=== PATIENT | male | born 1955 | race Caucasian/White ===

== ENCOUNTER 2017-02-20 13:10 | Day surgery (SDC) | payer BC ==
[2017-02-15 15:28] LABS: HEMATOCRIT 42.5 % (40.0-51.0); HEMOGLOBIN 13.9 g/dL (13.6-17.8)
[2017-02-15 16:04] LABS: ALBUMIN 3.8 G/DL (3.5-5.0); BUN (BLOOD UREA NITROGEN) 14 MG/DL (6-23); CALCIUM, SERUM 9.1 MG/DL (8.5-10.4); CHLORIDE, SERUM 105 MMOL/L (96-112); CO2 (CARBON DIOXIDE) 30 MMOL/L (24-34); CREATININE 0.97 MG/DL (0.70-1.30); DIRECT BILIRUBIN 0.1 MG/DL (0.0-0.4); GFR AFRICAN AMERICAN 97 ML/MIN (>=60); GFR NON AFRICAN AMERICAN 83 ML/MIN (>=60); GLUCOSE, SERUM 84 MG/DL (60-99); INDIRECT BILIRUBIN(NOT ORDER) 0.3 MG/DL (0.1-0.9); POTASSIUM, SERUM 4.3 MMOL/L (3.5-5.3); SGOT(AST) 30 U/L (5-40); SGPT(ALT) 40 U/L (5-65); SODIUM, SERUM 140 MMOL/L (135-148); TOTAL BILIRUBIN 0.4 MG/DL (0-1.2); TOTAL PROTEIN 7.9 G/DL (6.0-8.5)
[2017-02-15 16:08] LABS: ALKALINE PHOSPHATASE 96 U/L (45-117)
--- NOTE | ~2017-02-20 | OP ---
Record Of Operation [facility] [address] [place]. [address] NAME: CARLTON ODONNELL : 53 STATUS : REG [facility]#: [id number] AGE: 61 ADM/REG DATE : 02/20/17 MR#: [id number] REPORT SERV DATE: 02/20/17 DICTATED BY: RINA VEGA DATE: 02/20/17 REPORT STATUS : Draft TRANSCRIBED BY: MODL DATE: 02/20/17 DATE OF PROCEDURE: 02/20/2017 PREOPERATIVE DIAGNOSIS: Neck adenopathy. POSTOPERATIVE DIAGNOSIS: Neck adenopathy. PROCEDURE: Left neck cervical lymph node biopsy, deep, level 2B. INDICATIONS: Carlton Odonnell is a 61-year-old gentleman, whom I saw about a year ago for a left parotid lymph node. This was aspirated and the FNA was negative at that time and in the last couple of months, he has had progressively bulky cervical lymphadenopathy. A CT scan also shows the mediastinum to be full of neck nodes. I counseled him about the risks, benefits, and alternatives of this procedure. The risks include, but are not limited to pain, bleeding, infection, and scarring. I also told him that today's procedure is diagnostic and not therapeutic and if a diagnosis of lymphoma is returned, he will need to have chemotherapy. I also informed his of the possible need to stay overnight, if he is having difficulty postoperatively. They voiced an understanding for all of those risks and he signed a consent form. PROCEDURE IN DETAIL: Mr. Odonnell was brought to the operating room and positioned on the table in a supine manner. General endotracheal anesthesia was induced. He was somewhat difficult to intubate. The patient was prepped and draped in the usual fashion. An incision was made within relaxed skin tension lines overlying the anterior border of the left sternocleidomastoid muscle. This was carried down through subcutaneous tissue. Hemostasis was obtained with unipolar and bipolar electrocautery. We came over the anterior border of the sternocleidomastoid muscle and identified the mass in question, which was between the sternocleidomastoid muscle and the left submandibular gland. A combination of blunt and sharp dissection sufficed to free up this node from surrounding tissue. Multiple other nodes are seen as well. Once the specimen had been delivered, this was given to Dr. Bennett as a fresh specimen and he will proceed with the lymphoma workup. The surgical cavity was thoroughly irrigated with copious amounts of saline. A bit of Surgiflo was placed into the cavity as well and we left that in place for 3 minutes and then washed most of that out without identifying any further bleeding. A small piece of Surgicel was placed into the apex of the wound at an area that was oozing just slightly. This oozing had stopped by the end of the procedure. A 4-0 Vicryl undyed was utilized to reapproximate the platysma in an interrupted fashion. We used the same stitch to sew the subcutaneous layer together and once that was finished, we placed a 5-0 Prolene on the skin edge and 0.5 inch Steri-Strips as well. A dressing sponge was placed over the top of that. The patient was returned to anesthesia control and he was extubated in the operating room and moved to the recovery room in good condition. FINDINGS: 1. Estimated blood loss 10 mL. 2. Total fluids given 1000 mL of Ringer's lactate. 3. Multiple left-sided lymph nodes, consistent with lymphoma. Record Of Operation [facility] [address] [place]. [address] NAME: CARLTON ODONNELL : 53 STATUS : REG [facility]#: [id number] AGE: 61 ADM/REG DATE : 02/20/17 MR#: [id number] REPORT SERV DATE: 02/20/17 DICTATED BY: RINA VEGA DATE: 02/20/17 REPORT STATUS : Draft TRANSCRIBED BY: LESLIE DATE: 02/20/17 DMITRY/LESLIE Rina Vega M.D. / [id number] CC: Ben Bowman DO
[~2017-02-20 13:10] MED LIST: ASAB PO; ATEN25 PO; CODEINE SULFATE PO; IMITREX100 MG PO; PRAVACHOL40 MG PO; TESS PO
[2017-02-20 17:15] LABS: BASOPHILS 0.2 %; BASOPHILS ABSOLUTE 0.02 10/3/uL (0.0-0.16); EOSINOPHILS 0.1 %; EOSINOPHILS ABSOLUTE 0.01 10/3/uL (0.0-0.53); HEMOGLOBIN 14.4 g/dL (13.6-17.8); IMMATURE GRANULOCYTES 0.3 %; IMMATURE GRANULOCYTES ABSOLUTE 0.04 10/3/uL (0.0-0.11); LYMPHOCYTES 12.2 %; LYMPHOCYTES ABSOLUTE 1.43 10/3/uL (0.67-4.30); MEAN CORPUSCULAR HEMOGLOB 29.1 pg (26.0-34.0); MEAN CORPUSCULAR VOLUME 88.9 fL (80-100); MEAN PLATELET VOLUME 8.6 fL (9.2-13.0); MONOCYTES 3.8 %; MONOCYTES ABSOLUTE 0.45 10/3/uL (0.21-1.20); NEUTROPHILS 83.4 %; NEUTROPHILS ABSOLUTE 9.79 10/3/uL (2.02-8.40); RBC DISTRIBUTION WIDTH 12.9 % (12.0-16.0); RED CELL COUNT 4.95 10/6/uL (4.7-6.1); RETICULOCYTE COUNT 1.4 % (0.5-2.5); RETICULOCYTE COUNT ABSOLUTE 68.8 10/3/uL (20.2-119.8)
[2017-02-20 17:16] LABS: MANUAL DIFF NO %; MEAN CORPUS HGB CONC 32.7 g/dL (32.0-36.0); PLATELET COUNT 314 10/3/uL (150-400); WHITE BLOOD CELLS 11.7 10/3/uL (4.5-10.5)
[2017-05-07] MEDS ORDERED: P20 PO (11:45)
[2017-05-07] MEDS ORDERED: LIOR10 PO (11:46)
[2017-05-07] MEDS ORDERED: ZOFRANODT8 PO (11:46)
[2017-05-07] MEDS ORDERED: COMP10B PO (11:48)
[2017-05-07] MEDS ORDERED: IMITREX100 MG PO (11:49)
[2017-05-07] MEDS ORDERED: CHEMOTHERAPY IV (11:49)
[2017-05-07] MEDS ORDERED: ASAB PO (11:50)
[2017-05-07] MEDS ORDERED: MIRALAX POWDER1 PKT PO (11:50)
[2017-05-07] MEDS ORDERED: DSS PO (11:50)
[2017-05-07] MEDS ORDERED: SENTAB PO (11:50)
[2017-05-08] MEDS ORDERED: ELIQUIS 5 MG TAB5 MG PO (16:22)
[2017-05-08] MEDS ORDERED: FLECAINIDE100 MG PO (16:23)
== END 2017-02-20 19:43 | disposition home or self-care (01) ==
LOC: SDC 13:10
PROVIDERS: Otolaryngology; Pathology Anatomic Pathology & Clinical Pathology
PROC: 07B20ZX Excision of Left Neck Lymphatic, Open Approach, Diagnostic (ICD-10-PCS; principal; 2017-02-20 14:30)
DX: R59.1 Generalized enlarged lymph nodes (principal); R04.2 Hemoptysis; I10 Essential (primary) hypertension; E78.00 Pure hypercholesterolemia, unspecified; I48.91 Unspecified atrial fibrillation; Z79.899 Other long term (current) drug therapy; Z88.8 Allergy status to other drugs, medicaments and biological substances; Z85.46 Personal history of malignant neoplasm of prostate; Z98.890 Other specified postprocedural states; Z87.891 Personal history of nicotine dependence
CPT/HCPCS: 80048; 80076; 85014; 85018; 85025; 85045; 88305; 88311; 88313; 88341; 88342; 88360; 88367; 93005; J0690; J2250; J2370; J2405; J2710; J3010

== ENCOUNTER 2017-02-28 15:23 | Inpatient (IN) | payer BC ==
--- NOTE | ~2017-02-28 | DS ---
Discharge Summary [facility] [address] [place]. 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 3. Hypertension. 4. Heart disease. 5. Former smoker. CONSULTATIONS: Paolo Rogers MD PROCEDURES PERFORMED: None. MEDICATIONS: Excedrin Extra-Strength two tablets daily as needed, Tenormin 25 mg at bedtime, Tessalon 100 mg three times a day as needed, Pravachol 40 mg every 48 hours, and Deltasone 100 mg daily. CONDITION AT DISCHARGE: Stable. DISPOSITION: The patient was discharged home on a regular diet with activities as instructed. He would follow up with me as instructed. HOSPITAL COURSE: This is a 61-year-old man who has mediastinal B-cell lymphoma. He had initially presented in February of 2016 with left neck enlarged adenopathy. Fine-needle aspiration showed only benign reactive lymph nodes. However, adenopathy continued to increase and recently he had worsening shortness of breath and occasional hemoptysis. Recent imaging with a PET-CT showed a 7.3 cm of bulky mediastinal mass as well as right supraclavicular and left neck up to level 2 adenopathy consistent with Hodgkin's lymphoma. Additionally, a 0.7 cm right middle lobe nodule was identified, but not thought to be involved. Excision of the left neck on 02/20/2017 confirmed diffuse large B-cell lymphoma, non-germinal center type. He was admitted to the hospital at this time for further evaluation and treatment. Upon admission, it was felt that the patient should be placed on prednisone and we began R- CHOP the following day. A Rituxan test dose was going to be performed. 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 Breathing treatments were going to be provided in addition to the chemotherapy. The following day, the patient was seen by Dr. Paolo Rogers regarding the bulky B-cell lymphoma. Prednisone had been started. The patient said he was having less hemoptysis. He had stable [id number] shortness of breath and especially increased cough at night. He denied any arm pain or swelling. 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 The typical management scheme of chemotherapy with adjuvant radiotherapy was discussed. It was felt that radiotherapy could be used in an emergent situation if the patient developed significant and worsening stridor or symptoms of superior vena cava syndrome. He denied any pain or swelling at this time. He had already been started on prednisone, which had decreased his hemoptysis. Plans were made to begin systemic therapy later in the day. A PICC line had been inserted. He had been changed to IV steroids. On 03/02/2017, he said he was feeling okay. His SVC syndrome Discharge Summary [address] [address] NAME: ALOK AGUILA : 53 STATUS : DIS IN PAT#: [id number] AGE: 61 ADM/REG DATE : 02/28/17 MR#: [id number] REPORT SERV DATE: 03/14/17 DICTATED BY: REGAN MEDELLIN DATE: 03/14/17 REPORT STATUS : Draft TRANSCRIBED BY: LESLIE DATE: 03/14/17 was improving. Chemotherapy treatment continued. Discharge planning was performed. On 03/03/2017, he was feeling okay. He had decreased swelling in his neck. He had no edema. Discharge instructions were given. Due to his improved and stable condition, he was discharged home with the above-stated instructions. Information collected by: Sumaya Dutta I submit the above information as my discharge summary. TG/LESLIE Regan Medellin M.D. / [id number] CC: Ben Bales IV, DO Marcus Wagner, MD
--- NOTE | ~2017-02-28 | CONSULT ---
Radiation Oncology Consult [address] [address] NAME: ALOK AGUILA : 53 STATUS : ADM IN PAT#: [id number] AGE: 61 ADM/REG DATE : 02/28/17 MR#: [id number] REPORT SERV DATE: 03/01/17 DICTATED BY: PAOLO ROGERS DATE: 03/01/17 REPORT STATUS : Draft TRANSCRIBED BY: MODL DATE: 03/01/17 RADIATION ONCOLOGY CONSULTATION REASON FOR CONSULTATION: Bulky B-cell lymphoma. HISTORY OF PRESENT ILLNESS: Mr. Aguila is a pleasant 61-year-old white male who initially presented in 02/2016 with left neck enlarged adenopathy. FNA on 03/16/2016 showed only benign reactive lymph node. However, adenopathy continued to increase and more recently, worsening shortness of breath, cough, and occasional hemoptysis. Recent imaging with PET-CT shows 7.3 cm bulky mediastinal mass as well as right supraclavicular and left neck up to level 2 adenopathy consistent with Hodgkin lymphoma. Additionally, a 0.7 cm right middle lobe nodule was identified, but not thought to be involved. Excision of left neck on 02/20/2017 confirms diffuse large B-cell lymphoma, non-germinal center type. The patient was admitted to the hospital yesterday by Dr. Andrade. After starting prednisone yesterday, he states he is having less hemoptysis, otherwise, stable [id number]-[id number] shortness of breath and especially increased cough at nighttime. He denies arm pain or swelling. He has had some voice oil changer the past week which is not present today. REVIEW OF SYSTEMS: A comprehensive review of systems was obtained. Pertinent positives and negatives are listed above. PAST MEDICAL HISTORY: Heart disease, hypertension, prostatectomy, cholecystectomy, and diffuse large B-cell lymphoma. SOCIAL HISTORY: He smoked cigars as well as smoked half pack per day. He drinks alcohol socially. Denies illicit drug use. FAMILY HISTORY: Noncontributory. PHYSICAL EXAMINATION: VITAL SIGNS: Weight 218 pounds. GENERAL: Well-developed, well-nourished white male, sitting in hospital lounge chair, in no acute distress. Alert and oriented x4. Performance status 1. PULMONARY: Breathing normally without supplemental oxygen. Able to talk without pause. Clear to auscultation bilaterally. Good respiratory effort. CARDIOVASCULAR: Regular rate and rhythm. No peripheral edema. NECK: Bulky adenopathy was noted along the left neck with recent excision bandage in the low neck. EYES: Sclerae anicteric. Pupils equal, round, and reactive to light. ABDOMEN: Soft, nontender, nondistended. Positive bowel sounds. EXTREMITIES: No clubbing, cyanosis, or edema. NEUROLOGIC: Nonfocal. SKIN: No rashes or bruising. Radiation Oncology Consult [address] [address] NAME: ALOK AGUILA : 53 STATUS : ADM IN PAT#: [id number] AGE: 61 ADM/REG DATE : 02/28/17 MR#: [id number] REPORT SERV DATE: 03/01/17 DICTATED BY: PAOLO ROGERS DATE: 03/01/17 REPORT STATUS : Draft TRANSCRIBED BY: LESLIE DATE: 03/01/17 IMAGING: I reviewed PET-CT and agree with the above findings. ASSESSMENT AND PLAN: Diffuse large B-cell lymphoma with bulky mediastinal adenopathy: We discussed the typical management scheme of chemotherapy with adjuvant radiotherapy. Radiotherapy could be used in an emergent situation if the patient developed significant and worsening stridor or symptoms of superior vena cava syndrome (he denies arm pain or swelling at this time). He has already started on prednisone which has decreased his hemoptysis with plans to start systemic therapy later today. Therefore, I will hold radiotherapy for now and plan otherwise to see him for consolidative therapy after the chemotherapy is completed in several months. It is a pleasure to participate in his care. CATHY/LESLIE Paolo Rogers MD / [id number] CC: Ben Bales IV, DO Douglas A. Liening, M.D.
[2017-02-28 18:20] LABS: BASOPHILS 0.2 %; BASOPHILS ABSOLUTE 0.03 10/3/uL (0.0-0.16); EOSINOPHILS 0.2 %; EOSINOPHILS ABSOLUTE 0.03 10/3/uL (0.0-0.53); HEMATOCRIT 42.9 % (40.0-51.0); HEMOGLOBIN 14.1 g/dL (13.6-17.8); IMMATURE GRANULOCYTES 0.5 %; IMMATURE GRANULOCYTES ABSOLUTE 0.06 10/3/uL (0.0-0.11); LYMPHOCYTES 20.8 %; MEAN CORPUS HGB CONC 32.9 g/dL (32.0-36.0); MEAN CORPUSCULAR HEMOGLOB 28.8 pg (26.0-34.0); MEAN CORPUSCULAR VOLUME 87.6 fL (80-100); MEAN PLATELET VOLUME 8.9 fL (9.2-13.0); MONOCYTES 8.7 %; MONOCYTES ABSOLUTE 1.13 10/3/uL (0.21-1.20); NEUTROPHILS 69.6 %; NEUTROPHILS ABSOLUTE 9.06 10/3/uL (2.02-8.40); PLATELET COUNT 313 10/3/uL (150-400); RBC DISTRIBUTION WIDTH 13.3 % (12.0-16.0)
[2017-02-28 18:21] LABS: MANUAL DIFF NO %
[2017-02-28 18:36] LABS: A/G RATIO 0.7 (0.7-1.9); ALBUMIN 3.4 G/DL (3.5-5.0); ALKALINE PHOSPHATASE 81 U/L (45-117); BUN (BLOOD UREA NITROGEN) 17 MG/DL (6-23); CALCIUM, SERUM 9.7 MG/DL (8.5-10.4); CHLORIDE, SERUM 102 MMOL/L (96-112); CO2 (CARBON DIOXIDE) 28 MMOL/L (24-34); CREATININE 1.08 MG/DL (0.70-1.30); GFR AFRICAN AMERICAN 85 ML/MIN (>=60); GFR NON AFRICAN AMERICAN 73 ML/MIN (>=60); GLOBULIN 4.6 G/DL (2.5-4.1); GLUCOSE, SERUM 82 MG/DL (60-99); POTASSIUM, SERUM 4.5 MMOL/L (3.5-5.3); SGOT(AST) 28 U/L (5-40); SGPT(ALT) 40 U/L (5-65); SODIUM, SERUM 136 MMOL/L (135-148); TOTAL BILIRUBIN 0.3 MG/DL (0-1.2)
[2017-02-28] MEDS ORDERED: ATEN25 PO (21:19)
[2017-02-28] MEDS ORDERED: PRAVACHOL40 MG PO (21:19)
[2017-02-28] MEDS ORDERED: TESS PO (21:19)
[2017-02-28] MEDS ORDERED: EXCEDRIN EXTRA1 EACH PO (21:19)
[2017-03-01 04:57] LABS: BASOPHILS 0 %; EOSINOPHILS 0 %; HEMATOCRIT 41.4 % (40.0-51.0); HEMOGLOBIN 13.7 g/dL (13.6-17.8); IMMATURE GRANULOCYTES 0.3 %; IMMATURE GRANULOCYTES ABSOLUTE 0.03 10/3/uL (0.0-0.11); LYMPHOCYTES 9.8 %; LYMPHOCYTES ABSOLUTE 1.12 10/3/uL (0.67-4.30); MEAN CORPUS HGB CONC 33.1 g/dL (32.0-36.0); MEAN CORPUSCULAR HEMOGLOB 28.8 pg (26.0-34.0); MEAN PLATELET VOLUME 8.8 fL (9.2-13.0); MONOCYTES 1.8 %; MONOCYTES ABSOLUTE 0.21 10/3/uL (0.21-1.20); NEUTROPHILS 88.1 %; NEUTROPHILS ABSOLUTE 10.04 10/3/uL (2.02-8.40); PLATELET COUNT 336 10/3/uL (150-400); RED CELL COUNT 4.76 10/6/uL (4.7-6.1); WHITE BLOOD CELLS 11.4 10/3/uL (4.5-10.5)
[2017-03-01 05:02] LABS: MANUAL DIFF NO %
[2017-03-01 05:09] LABS: BUN (BLOOD UREA NITROGEN) 16 MG/DL (6-23); CALCIUM, SERUM 9.4 MG/DL (8.5-10.4); CHLORIDE, SERUM 106 MMOL/L (96-112); CO2 (CARBON DIOXIDE) 23 MMOL/L (24-34); GFR AFRICAN AMERICAN 106 ML/MIN (>=60); GFR NON AFRICAN AMERICAN 91 ML/MIN (>=60); GLUCOSE, SERUM 135 MG/DL (60-99); POTASSIUM, SERUM 4.4 MMOL/L (3.5-5.3); SODIUM, SERUM 138 MMOL/L (135-148)
[2017-03-02 06:45] LABS: BASOPHILS 0.1 %; BASOPHILS ABSOLUTE 0.01 10/3/uL (0.0-0.16); EOSINOPHILS 0 %; HEMATOCRIT 39.1 % (40.0-51.0); HEMOGLOBIN 13.1 g/dL (13.6-17.8); IMMATURE GRANULOCYTES 0.3 %; IMMATURE GRANULOCYTES ABSOLUTE 0.05 10/3/uL (0.0-0.11); LYMPHOCYTES 4.2 %; LYMPHOCYTES ABSOLUTE 0.62 10/3/uL (0.67-4.30); MEAN CORPUS HGB CONC 33.5 g/dL (32.0-36.0); MEAN CORPUSCULAR HEMOGLOB 28.7 pg (26.0-34.0); MEAN CORPUSCULAR VOLUME 85.6 fL (80-100); MEAN PLATELET VOLUME 8.8 fL (9.2-13.0); MONOCYTES 3.3 %; MONOCYTES ABSOLUTE 0.48 10/3/uL (0.21-1.20); NEUTROPHILS 92.1 %; NEUTROPHILS ABSOLUTE 13.48 10/3/uL (2.02-8.40); PLATELET COUNT 292 10/3/uL (150-400); RED CELL COUNT 4.57 10/6/uL (4.7-6.1); WHITE BLOOD CELLS 14.6 10/3/uL (4.5-10.5)
[2017-03-02 06:53] LABS: MANUAL DIFF NO %
[2017-03-02 06:54] LABS: BUN (BLOOD UREA NITROGEN) 23 MG/DL (6-23); CALCIUM, SERUM 9.2 MG/DL (8.5-10.4); CHLORIDE, SERUM 104 MMOL/L (96-112); CO2 (CARBON DIOXIDE) 25 MMOL/L (24-34); CREATININE 0.93 MG/DL (0.70-1.30); GFR AFRICAN AMERICAN 102 ML/MIN (>=60); GFR NON AFRICAN AMERICAN 88 ML/MIN (>=60); GLUCOSE, SERUM 122 MG/DL (60-99); POTASSIUM, SERUM 4.2 MMOL/L (3.5-5.3); SODIUM, SERUM 137 MMOL/L (135-148)
[2017-03-03 05:00] LABS: BASOPHILS 0 %; EOSINOPHILS 0 %; HEMATOCRIT 38.9 % (40.0-51.0); HEMOGLOBIN 12.9 g/dL (13.6-17.8); IMMATURE GRANULOCYTES 0.3 %; IMMATURE GRANULOCYTES ABSOLUTE 0.04 10/3/uL (0.0-0.11); LYMPHOCYTES 3.2 %; LYMPHOCYTES ABSOLUTE 0.38 10/3/uL (0.67-4.30); MEAN CORPUS HGB CONC 33.2 g/dL (32.0-36.0); MEAN CORPUSCULAR HEMOGLOB 28.6 pg (26.0-34.0); MEAN CORPUSCULAR VOLUME 86.3 fL (80-100); MEAN PLATELET VOLUME 9.1 fL (9.2-13.0); MONOCYTES 4.3 %; MONOCYTES ABSOLUTE 0.51 10/3/uL (0.21-1.20); NEUTROPHILS 92.2 %; NEUTROPHILS ABSOLUTE 10.85 10/3/uL (2.02-8.40); PLATELET COUNT 264 10/3/uL (150-400); RBC DISTRIBUTION WIDTH 12.8 % (12.0-16.0); RED CELL COUNT 4.51 10/6/uL (4.7-6.1); WHITE BLOOD CELLS 11.8 10/3/uL (4.5-10.5)
[2017-03-03 05:01] LABS: MANUAL DIFF NO %
[2017-03-03 05:08] LABS: BUN (BLOOD UREA NITROGEN) 21 MG/DL (6-23); CALCIUM, SERUM 8.7 MG/DL (8.5-10.4); CHLORIDE, SERUM 106 MMOL/L (96-112); CREATININE 0.94 MG/DL (0.70-1.30); GFR AFRICAN AMERICAN 100 ML/MIN (>=60); GFR NON AFRICAN AMERICAN 87 ML/MIN (>=60); GLUCOSE, SERUM 133 MG/DL (60-99); POTASSIUM, SERUM 4.3 MMOL/L (3.5-5.3); SODIUM, SERUM 141 MMOL/L (135-148)
[2017-03-03 05:09] LABS: CO2 (CARBON DIOXIDE) 30 MMOL/L (24-34)
[2017-03-03] MEDS ORDERED: PRED50B PO (09:57)
[2017-05-07] MEDS ORDERED: P20 PO (11:45)
[2017-05-07] MEDS ORDERED: ZOFRANODT8 PO (11:46)
[2017-05-07] MEDS ORDERED: LIOR10 PO (11:46)
[2017-05-07] MEDS ORDERED: COMP10B PO (11:48)
[2017-05-07] MEDS ORDERED: CHEMOTHERAPY IV (11:49)
[2017-05-07] MEDS ORDERED: IMITREX100 MG PO (11:49)
[2017-05-07] MEDS ORDERED: SENTAB PO (11:50)
[2017-05-07] MEDS ORDERED: ASAB PO (11:50)
[2017-05-07] MEDS ORDERED: DSS PO (11:50)
[2017-05-07] MEDS ORDERED: MIRALAX POWDER1 PKT PO (11:50)
[2017-05-08] MEDS ORDERED: ELIQUIS 5 MG TAB5 MG PO (16:22)
[2017-05-08] MEDS ORDERED: FLECAINIDE100 MG PO (16:23)
== END 2017-03-03 10:58 | disposition home or self-care (01) | DRG 847 ==
LOC: 4EA 15:23
PROVIDERS: Internal Medicine Hematology & Oncology
PROC: 02HV33Z Insertion of Infusion Device into Superior Vena Cava, Percutaneous Approach (ICD-10-PCS; principal; 2017-02-28)
PROC: 4A02X4A Measurement of Cardiac Electrical Activity, Guidance, External Approach (ICD-10-PCS; 2017-02-28)
PROC: 3E03305 Introduction of Other Antineoplastic into Peripheral Vein, Percutaneous Approach (ICD-10-PCS; 2017-03-01)
DX: Z51.11 Encounter for antineoplastic chemotherapy (principal); C83.30 Diffuse large B-cell lymphoma, unspecified site; J90 Pleural effusion, not elsewhere classified; I31.3 Pericardial effusion (noninflammatory); I87.1 Compression of vein; R91.1 Solitary pulmonary nodule
CPT/HCPCS: 36569; 71010; 78815; 80048; 80053; 83615; 83735; 84550; 85025; 93306; A9270-GY; A9552; C1751; J1652; J2405; J2930; J9000; J9070; J9310; J9370

== ENCOUNTER 2017-03-15 20:20 | Emergency (ER) | payer BC ==
[2017-03-15 19:12] LABS: BASOPHILS 0.6 %; BASOPHILS ABSOLUTE 0.08 10/3/uL (0.0-0.16); EOSINOPHILS 0.1 %; EOSINOPHILS ABSOLUTE 0.02 10/3/uL (0.0-0.53); ER CBC TAT 0 Hrs 08 Mins; HEMATOCRIT 41.7 % (40.0-51.0); HEMOGLOBIN 13.9 g/dL (13.6-17.8); IMMATURE GRANULOCYTES ABSOLUTE 1.16 10/3/uL (0.0-0.11); LYMPHOCYTES 22.4 %; LYMPHOCYTES ABSOLUTE 3.26 10/3/uL (0.67-4.30); MEAN CORPUS HGB CONC 33.3 g/dL (32.0-36.0); MEAN CORPUSCULAR HEMOGLOB 28.5 pg (26.0-34.0); MEAN CORPUSCULAR VOLUME 85.5 fL (80-100); MEAN PLATELET VOLUME 8.3 fL (9.2-13.0); MONOCYTES 7.8 %; MONOCYTES ABSOLUTE 1.13 10/3/uL (0.21-1.20); NEUTROPHILS 61.1 %; NEUTROPHILS ABSOLUTE 8.88 10/3/uL (2.02-8.40); RBC DISTRIBUTION WIDTH 13.4 % (12.0-16.0); RED CELL COUNT 4.88 10/6/uL (4.7-6.1); WHITE BLOOD CELLS 14.5 10/3/uL (4.5-10.5)
[2017-03-15 19:16] LABS: MANUAL DIFF NO %; PLATELET COUNT 183 10/3/uL (150-400)
[2017-03-15 19:21] LABS: INTERNATIONAL NORMAL RATI 1.1 UNITS (-); PARTIAL THROMBO TIME 34.1 SEC (22.5-37.2); PROTIME (NOT ORD) 14.3 SEC (12.0-14.5)
[2017-03-15 19:26] LABS: A/G RATIO 0.8 (0.7-1.9); ALBUMIN 3.3 G/DL (3.5-5.0); CALCIUM, SERUM 8.9 MG/DL (8.5-10.4); CHLORIDE, SERUM 103 MMOL/L (96-112); CREATININE 1.01 MG/DL (0.70-1.30); GFR AFRICAN AMERICAN 92 ML/MIN (>=60); GFR NON AFRICAN AMERICAN 79 ML/MIN (>=60); GLOBULIN 4.4 G/DL (2.5-4.1); GLUCOSE, SERUM 109 MG/DL (60-99); POTASSIUM, SERUM 4.1 MMOL/L (3.5-5.3); SGOT(AST) 20 U/L (5-40); SGPT(ALT) 38 U/L (5-65); TOTAL BILIRUBIN 0.7 MG/DL (0-1.2); TOTAL PROTEIN 7.7 G/DL (6.0-8.5)
[2017-03-15 19:27] LABS: ALKALINE PHOSPHATASE 112 U/L (45-117); BUN (BLOOD UREA NITROGEN) 10 MG/DL (6-23); CO2 (CARBON DIOXIDE) 23 MMOL/L (24-34); SODIUM, SERUM 134 MMOL/L (135-148)
[2017-03-15 19:36] LABS: BAND NEUTROPHILS 17 %; ER DIFF TAT 0 Hrs 32 Mins; IMMATURE GRANS ABSOLUTE (CALC) 1.16 10/3/uL (0.0-0.11); LYMPHOCYTES 13 %; LYMPHOCYTES ABSOLUTE (CALC) 1.89 10/3/uL (0.67-4.30); METAMYELOCYTES 7 %; MONOCYTES 3 %; MONOCYTES ABSOLUTE (CALC) 0.44 10/3/uL (0.21-1.20); MYELOCYTES 1 %; NEUTROPHILS ABSOLUTE (CALC) 11.02 10/3/uL (2.02-8.40); PLATELET ESTIMATE ADQ (ADEQUATE); SEGMENTED NEUTROPHIL (0) 59 %; TEARDROP SHAPED RBCS FEW (3-10/OIF); TOTAL NUCLEATED CELLS 100
[~2017-03-15 20:20] MED LIST changes: +EXCEDRIN EXTRA1 EACH PO; +PRED50B PO
[2017-03-15 20:22] LABS: WBC (NOT ORDERED) (RFLEX) 0 (0-5)
[2017-03-15 22:16] LABS: ASCORBIC ACID (UR NOT ORDER) NEG (NEG); BILIRUBIN, URINE NEGATIVE (NEG); KETONE, URINE NEGATIVE (NEG); LEUKOCYTE ESTERASE(NOT OR NEG (NEG); NITRITE (URINE) NEG (NEG)
[2017-03-15 22:17] LABS: ER URINALYSIS TAT 1 Hrs 54 Mins
[2017-05-07] MEDS ORDERED: P20 PO (11:45)
[2017-05-07] MEDS ORDERED: LIOR10 PO (11:46)
[2017-05-07] MEDS ORDERED: ZOFRANODT8 PO (11:46)
[2017-05-07] MEDS ORDERED: COMP10B PO (11:48)
[2017-05-07] MEDS ORDERED: IMITREX100 MG PO (11:49)
[2017-05-07] MEDS ORDERED: CHEMOTHERAPY IV (11:49)
[2017-05-07] MEDS ORDERED: SENTAB PO (11:50)
[2017-05-07] MEDS ORDERED: DSS PO (11:50)
[2017-05-07] MEDS ORDERED: ASAB PO (11:50)
[2017-05-07] MEDS ORDERED: MIRALAX POWDER1 PKT PO (11:50)
[2017-05-08] MEDS ORDERED: ELIQUIS 5 MG TAB5 MG PO (16:22)
[2017-05-08] MEDS ORDERED: FLECAINIDE100 MG PO (16:23)
== END 2017-03-15 22:25 | disposition home or self-care (01) ==
LOC: ER 20:20
PROVIDERS: Specialist
DX: C85.20 Mediastinal (thymic) large B-cell lymphoma, unspecified site (principal); I10 Essential (primary) hypertension; Z88.5 Allergy status to narcotic agent; Z79.82 Long term (current) use of aspirin; Z79.899 Other long term (current) drug therapy
CPT/HCPCS: 71020; 80053; 81001; 83605; 83690; 85025; 85610; 85730; 87040; 93005; 99284